=== PATIENT | female | born 1995 | race Caucasian/White ===

== ENCOUNTER 2017-11-03 11:23 | Day surgery (SDC) | payer OTHER ==
[~2017-11-03 11:23] MED LIST: METOCLOPRAMIDE 10 MG INJ
[2017-11-03] MEDS ORDERED: FENTAnyl 50 MCG/ML VIAL (13:22)
[2017-11-03] MEDS ORDERED: MIDAZOLAM 1 MG/ML 2 ML INJ (13:22)
[2017-11-03] MEDS ORDERED: PROPOFOL 20 ML (13:23)
[2017-11-03] MEDS ORDERED: DEXAMETHASONE 4 MG/ML 1 ML INJ (13:23)
[2017-11-03] MEDS ORDERED: LIDOCAINE 2% (SDV) 5 ML INJ (13:23)
[2017-11-03] MEDS ORDERED: NACL 0.9% 3 ML SYG IV (13:30)
[2017-11-03] MEDS ORDERED: OXYCODONE/ACETAMINOPHEN (5/325) TAB PO ×2 (13:30)
[2017-11-03] MEDS ORDERED: ONDANSETRON 4 MG INJ IV (13:30)
[2017-11-03] MEDS ORDERED: KETOROLAC 30 MG INJ IV (13:30)
[2017-11-03] MEDS ORDERED: HYDROmorphONE 0.5 MG/0.5 ML SYG IV (13:30)
[2017-11-03] MEDS ORDERED: ROPIVACAINE 0.5 % 30 ML VIAL (13:40)
[2017-11-03] MEDS: BUPIVACAINE 0.5% (SDV) 30 ML INJ (14:30)
[2017-11-03] MEDS: VANCOMYCIN 1 GM INJ (14:45)
[2017-11-03] MEDS ORDERED: ACETAMINOPHEN 1000MG/100ML IV 100 ML (15:58)
[2017-11-03] MEDS ORDERED: CLINDAMYCIN 900 MG/D5W (PMX) 50 ML IVPB (15:58)
[2017-11-03] MEDS ORDERED: ONDANSETRON 4 MG INJ (16:03)
[2017-11-03] MEDS ORDERED: HYDROmorphONE 2 MG/ML SYG (16:04)
[2017-11-03] MEDS ORDERED: FENTAnyl 50 MCG/ML VIAL IV ×2 (16:30)
[2017-11-03] MEDS ORDERED: HYDROmorphONE 1 MG/5 ML IV SYRINGE IV ×2 (16:30)
[2017-11-03] MEDS: DIPHENHYDRAMINE 50 MG INJ IV (17:27)
== END 2017-11-03 18:12 | disposition home or self-care (01) ==
LOC: SDS 11:23
DX: S83.511A Sprain of anterior cruciate ligament of right knee, initial encounter (principal); X58.XXXA Exposure to other specified factors, initial encounter; Y93.66 Activity, soccer; Y92.89 Other specified places as the place of occurrence of the external cause; Y99.8 Other external cause status
CPT/HCPCS: 29888; 84703

== ENCOUNTER 2018-02-23 11:55 | Inpatient (IN) | payer OTHER ==
[~2018-02-23 11:55] MED LIST changes: -METOCLOPRAMIDE 10 MG INJ; +VANCOMYCIN 1 GM in 250 ML IVPB
[2018-02-23 13:09] LABS: ADD MAN DIFF? NO
[2018-02-23 13:12] LABS: BASOPHIL # 0.1 10^3/ul (0.0-0.1); BASOPHILS % 0.8 % (0.0-2.0); EOSINOPHILS # 0.1 10^3/ul (0.0-0.5); EOSINOPHILS % 1.4 % (0.0-7.0); HEMATOCRIT 45.6 % (37.0-47.0); HEMOGLOBIN 15.2 g/dl (12.0-16.0); LYMPHOCYTES # 2.1 10^3/ul (0.8-2.9); LYMPHOCYTES % 33.3 % (18.0-55.0); MEAN CORPUSCULAR HEMOGLOBIN 28.8 pg (29.0-33.0); MEAN CORPUSCULAR HGB CONC 33.3 g/dl (32.0-37.0); MEAN CORPUSCULAR VOLUME 86.5 fl (72.0-104.0); MEAN PLATELET VOLUME 9.8 fl (7.4-10.4); MONOCYTE # 0.4 10^3/ul (0.3-0.9); MONOCYTES % 5.4 % (0.0-13.0); NEUTROPHIL # 3.8 10^3/ul (1.6-7.5); NEUTROPHILS % 58.9 % (30.0-74.0); PLATELET COUNT 325 10^3/UL (140-415); RED BLOOD COUNT 5.27 10^6/ul (4.20-5.40); RED CELL DISTRIBUTION WIDTH 11.5 % (11.5-14.5)
[2018-02-23 13:12] LABS: WHITE BLOOD COUNT 6.4 10^3/ul (4.8-10.8)
[2018-02-23 13:31] LABS: ANION GAP 11 (5-13); BLOOD UREA NITROGEN 13 mg/dl (7-20); CALCIUM 9.7 mg/dl (8.4-10.2); CARBON DIOXIDE 26 mmol/L (21-31); CHLORIDE 102 mmol/L (97-110); CREATININE 0.61 mg/dl (0.44-1.00); Estimated GFR > 60 mL/min (>60); GLUCOSE 80 mg/dl (70-220); POTASSIUM 4.1 mmol/L (3.5-5.1); SODIUM 139 mmol/L (135-144)
[2018-02-23 13:47] LABS: C-REACTIVE PROTEIN < 0.5 mg/dl (0.0-0.9)
[2018-02-23] MEDS: D5W-0.45 NACL + KCL 20 MEQ 1,000 ML IV ×2 (13:52→22:59)
[2018-02-23] MEDS ORDERED: SOD CHLORIDE 0.9% 1,000 ML IV (14:37)
[2018-02-23] MEDS ORDERED: NACL 0.9% 3 ML SYG IV (15:00)
[2018-02-23] MEDS ORDERED: MAGNESIUM HYDROXIDE 30ML CUP PO (15:00)
[2018-02-23] MEDS ORDERED: LORAZEPAM 2 MG INJ IV (15:00)
[2018-02-23] MEDS ORDERED: NITROGLYCERIN (SL) 0.4 MG TAB SL (15:00)
[2018-02-23] MEDS ORDERED: DOCUSATE SODIUM 100 MG CAP PO (15:00)
[2018-02-23] MEDS ORDERED: ACETAMINOPHEN 325 MG TAB PO (15:00)
[2018-02-23] MEDS ORDERED: ALBUTEROL/IPRATROPIUM (NEB) 3 ML AMP HHN (15:00)
[2018-02-23] MEDS ORDERED: hydrALAzine 20 MG INJ IV (15:00)
[2018-02-23 15:04] LABS: INR 0.95; PARTIAL THROMBOPLASTIN TIME 30.1 Sec (23.0-35.0); PROTIME 12.8 Sec (11.9-14.9)
[2018-02-23 15:17] LABS: ADD UMIC NO; UR ASCORBIC ACID NEGATIVE (NEGATIVE); UR BACTERIA FEW /HPF (NONE SEEN); UR BILIRUBIN (Dip) NEGATIVE (NEGATIVE); UR BLOOD (Dip) NEGATIVE (NEGATIVE); UR CLARITY SLIGHTLY CLOUDY (CLEAR); UR COLOR YELLOW (YELLOW); UR GLUCOSE (Dip) NEGATIVE (NEGATIVE); UR KETONES (Dip) NEGATIVE (NEGATIVE); UR LEUKOCYTE ESTERASE (Dip) NEGATIVE Leu/ul (NEGATIVE); UR NITRITE (Dip) NEGATIVE (NEGATIVE); UR RBC 2 /HPF (0-5); UR SQUAMOUS EPITHELIAL CELL MODERATE /HPF (FEW); UR TOTAL PROTEIN (Dip) NEGATIVE (NEGATIVE); UR UROBILINOGEN (Dip) NEGATIVE (NEGATIVE); UR WBC 2 /HPF (0-5)
[2018-02-23 15:41] LABS: FREE T4 (FREE THYROXINE) 1.02 ng/dl (0.79-2.35)
[2018-02-23] MEDS: AZTREONAM 2 GM in SOD CHLORIDE 0.9% 100 ML IVPB (15:47)
[2018-02-23] MEDS ORDERED: VANCOMYCIN IV PER PHARMACY XX (16:00)
[2018-02-23] MEDS ORDERED: morphine LIQ (10 MG/5 ML) CUP PO (16:30)
[2018-02-23] MEDS: VANCOMYCIN 1.25 GM in SOD CHLORIDE 0.9% 250 ML IVPB (21:44)
[2018-02-24] MEDS: DIPHENHYDRAMINE 50 MG INJ IV (01:07)
[2018-02-24] MEDS: AZTREONAM 2 GM in SOD CHLORIDE 0.9% 100 ML IVPB ×3 (02:01→23:10)
[2018-02-24] MEDS ORDERED: VANCOMYCIN 1 GM in 250 ML IVPB (03:00)
[2018-02-24 05:05] LABS: ADD MAN DIFF? NO
[2018-02-24 05:12] LABS: BASOPHIL # 0.1 10^3/ul (0.0-0.1); BASOPHILS % 0.6 % (0.0-2.0); EOSINOPHILS # 0.2 10^3/ul (0.0-0.5); EOSINOPHILS % 2.2 % (0.0-7.0); HEMATOCRIT 39.5 % (37.0-47.0); HEMOGLOBIN 13.2 g/dl (12.0-16.0); LYMPHOCYTES # 3.3 10^3/ul (0.8-2.9); LYMPHOCYTES % 40.2 % (18.0-55.0); MEAN CORPUSCULAR HEMOGLOBIN 29.1 pg (29.0-33.0); MEAN CORPUSCULAR HGB CONC 33.4 g/dl (32.0-37.0); MEAN PLATELET VOLUME 10.5 fl (7.4-10.4); MONOCYTE # 0.7 10^3/ul (0.3-0.9); NEUTROPHIL # 3.9 10^3/ul (1.6-7.5); NEUTROPHILS % 48.6 % (30.0-74.0); PLATELET COUNT 299 10^3/UL (140-415); RED BLOOD COUNT 4.54 10^6/ul (4.20-5.40); RED CELL DISTRIBUTION WIDTH 11.7 % (11.5-14.5)
[2018-02-24 05:12] LABS: WHITE BLOOD COUNT 8.1 10^3/ul (4.8-10.8)
[2018-02-24 05:27] LABS: HEMOGLOBIN A1C 4.9 % (0-5.9)
[2018-02-24 05:44] LABS: CHOL/HDL RATIO 2.7 RATIO; HDL CHOLESTEROL 52 mg/dl (33-83); LDL CHOLESTEROL,CALCULATED 66 mg/dl; TRIGLYCERIDES 123 mg/dl (0-149)
[2018-02-24 05:44] LABS: CHOLESTEROL 143 mg/dl (100-200)
[2018-02-24 05:45] LABS: ANION GAP 9 (5-13); BLOOD UREA NITROGEN 12 mg/dl (7-20); CALCIUM 8.8 mg/dl (8.4-10.2); CARBON DIOXIDE 27 mmol/L (21-31); CHLORIDE 105 mmol/L (97-110); CREATININE 0.68 mg/dl (0.44-1.00); Estimated GFR > 60 mL/min (>60); GLUCOSE 101 mg/dl (70-220); MAGNESIUM 2.1 mg/dl (1.7-2.5); PHOSPHORUS 5.1 mg/dl (2.5-4.9); POTASSIUM 4.3 mmol/L (3.5-5.1); SODIUM 141 mmol/L (135-144)
[2018-02-24] MEDS: D5W-0.45 NACL + KCL 20 MEQ 1,000 ML IV ×2 (08:33→19:28)
[2018-02-24] MEDS: VANCOMYCIN 1 GM in 250 ML IVPB ×2 (08:34→19:26)
[2018-02-24] MEDS ORDERED: ROPIVACAINE 0.5 % 30 ML VIAL (15:06)
[2018-02-24] MEDS: MEPERIDINE 25 MG INJ IV (17:54)
[2018-02-24] MEDS: ONDANSETRON 4 MG INJ IV ×2 (17:54→23:04)
[2018-02-24] MEDS: HYDROmorphONE 1 MG/5 ML IV SYRINGE IV ×3 (17:59→18:12)
[2018-02-24] MEDS ORDERED: METOCLOPRAMIDE 10 MG INJ IV (18:00)
[2018-02-24] MEDS ORDERED: DIPHENHYDRAMINE 50 MG INJ IV (18:00)
[2018-02-24] MEDS ORDERED: ALBUTEROL 0.083% (NEB) 2.5 MG/3 ML AMP HHN (18:00)
[2018-02-24] MEDS ORDERED: FENTAnyl 50 MCG/ML VIAL IV ×2 (18:00)
[2018-02-24 19:50] LABS: SYN FLD MN % 32.8 &; SYN FLD PMN % 67.2 % (0.0-25.0)
[2018-02-24 20:09] LABS: SYN FLD WBC 12117 /cmm (0-150)
[2018-02-24 20:10] LABS: SYN FLD SOURCE RIGHT KNEE
[2018-02-24 20:10] LABS: SYN FLD CLARITY BLOODY; SYN FLD COLOR RED; SYN FLD CRYSTALS NO CRYSTALS SEEN (None seen)
[2018-02-25] MEDS: VANCOMYCIN 1 GM in 250 ML IVPB ×2 (01:04→09:39)
[2018-02-25] MEDS: HYDROCODONE/APAP (5/325) TAB PO ×2 (01:05→08:13)
[2018-02-25 06:45] LABS: ADD MAN DIFF? NO
[2018-02-25 07:01] LABS: BASOPHILS % 0.4 % (0.0-2.0); EOSINOPHILS % 0.1 % (0.0-7.0); HEMATOCRIT 38.6 % (37.0-47.0); LYMPHOCYTES # 1.4 10^3/ul (0.8-2.9); LYMPHOCYTES % 15.6 % (18.0-55.0); MEAN CORPUSCULAR HEMOGLOBIN 29.2 pg (29.0-33.0); MEAN CORPUSCULAR HGB CONC 33.7 g/dl (32.0-37.0); MEAN CORPUSCULAR VOLUME 86.7 fl (72.0-104.0); MEAN PLATELET VOLUME 10.2 fl (7.4-10.4); MONOCYTE # 0.5 10^3/ul (0.3-0.9); MONOCYTES % 5.6 % (0.0-13.0); PLATELET COUNT 279 10^3/UL (140-415); RED BLOOD COUNT 4.45 10^6/ul (4.20-5.40); RED CELL DISTRIBUTION WIDTH 11.6 % (11.5-14.5)
[2018-02-25 07:29] LABS: ANION GAP 6 (5-13); BLOOD UREA NITROGEN 8 mg/dl (7-20); CALCIUM 8.9 mg/dl (8.4-10.2); CARBON DIOXIDE 29 mmol/L (21-31); CHLORIDE 105 mmol/L (97-110); CREATININE 0.61 mg/dl (0.44-1.00); Estimated GFR > 60 mL/min (>60); GLUCOSE 94 mg/dl (70-220); POTASSIUM 4.4 mmol/L (3.5-5.1); SODIUM 140 mmol/L (135-144)
[2018-02-25] MEDS: CEFTRIAXONE 250 MG INJ ZFS (08:13)
[2018-02-25 09:25] LABS: VANCOMYCIN,TROUGH 14.8 ug/ml (10.0-20.0)
[2018-02-25] MEDS: CEFTRIAXONE 2 GM/50 ML (PMX) 50 ML IVPB ×2 (09:30→14:11)
[2018-02-25] MEDS: ONDANSETRON 4 MG INJ IV (09:39)
[2018-02-25] MEDS: D5W-0.45 NACL + KCL 20 MEQ 1,000 ML IV ×3 (11:17→22:07)
[2018-02-25] MEDS ORDERED: DIPHENHYDRAMINE 50 MG INJ IV (12:30)
[2018-02-25] MEDS: VANCOMYCIN 750 MG in SOD CHLORIDE 0.9% 150 ML IVPB (18:37)
[2018-02-26] MEDS: D5W-0.45 NACL + KCL 20 MEQ 1,000 ML IV ×2 (00:10→11:09)
[2018-02-26] MEDS: VANCOMYCIN 750 MG in SOD CHLORIDE 0.9% 150 ML IVPB (02:16)
[2018-02-26 07:20] LABS: ADD MAN DIFF? NO
[2018-02-26 07:35] LABS: WHITE BLOOD COUNT 5.9 10^3/ul (4.8-10.8)
[2018-02-26 07:35] LABS: BASOPHILS % 0.5 % (0.0-2.0); EOSINOPHILS # 0.2 10^3/ul (0.0-0.5); EOSINOPHILS % 2.7 % (0.0-7.0); HEMATOCRIT 39.1 % (37.0-47.0); HEMOGLOBIN 12.9 g/dl (12.0-16.0); LYMPHOCYTES # 1.3 10^3/ul (0.8-2.9); MEAN CORPUSCULAR HEMOGLOBIN 29.1 pg (29.0-33.0); MEAN CORPUSCULAR VOLUME 88.1 fl (72.0-104.0); MEAN PLATELET VOLUME 9.9 fl (7.4-10.4); MONOCYTE # 0.6 10^3/ul (0.3-0.9); MONOCYTES % 10.7 % (0.0-13.0); NEUTROPHIL # 3.8 10^3/ul (1.6-7.5); NEUTROPHILS % 63.9 % (30.0-74.0); PLATELET COUNT 260 10^3/UL (140-415); RED BLOOD COUNT 4.44 10^6/ul (4.20-5.40); RED CELL DISTRIBUTION WIDTH 11.5 % (11.5-14.5)
[2018-02-26 07:55] LABS: ANION GAP 10 (5-13); BLOOD UREA NITROGEN 7 mg/dl (7-20); CALCIUM 9.1 mg/dl (8.4-10.2); CARBON DIOXIDE 31 mmol/L (21-31); CHLORIDE 101 mmol/L (97-110); CREATININE 0.66 mg/dl (0.44-1.00); Estimated GFR > 60 mL/min (>60); GLUCOSE 98 mg/dl (70-220); POTASSIUM 4.1 mmol/L (3.5-5.1); SODIUM 142 mmol/L (135-144)
[2018-02-26] MEDS: LEVOFLOXACIN 750 MG TABLET PO (11:09)
[2018-02-26] MEDS ORDERED: LORAZEPAM 4 MG/ML VIAL IV (13:30)
[2018-02-27] MEDS ORDERED: LEVOFLOXACIN 750 MG TABLET PO (06:00)
[2018-02-28 14:41] LABS: PROCALCITONIN <0.10 ng/mL (<0.10)
== END 2018-02-26 15:50 | disposition home or self-care (01) | DRG 857 ==
LOC: E/R 11:55 → 2NE 13:13
PROC: 0JBN0ZZ Excision of Right Lower Leg Subcutaneous Tissue and Fascia, Open Approach (ICD-10-PCS; principal; 2018-02-24 15:30)
PROC: 3E1U38X Irrigation of Joints using Irrigating Substance, Percutaneous Approach, Diagnostic (ICD-10-PCS; 2018-02-24 15:30)
DX: T81.41XA Infection following a procedure, superficial incisional surgical site, initial encounter (principal); M00.061 Staphylococcal arthritis, right knee; T85.79XA Infection and inflammatory reaction due to other internal prosthetic devices, implants and grafts, initial encounter; B95.2 Enterococcus as the cause of diseases classified elsewhere; B95.4 Other streptococcus as the cause of diseases classified elsewhere; B96.5 Pseudomonas (aeruginosa) (mallei) (pseudomallei) as the cause of diseases classified elsewhere; B95.7 Other staphylococcus as the cause of diseases classified elsewhere
CPT/HCPCS: 73562; 80048; 80061; 80202; 81001; 81003; 81025; 83036; 83735; 84100; 84145; 84439; 84443; 85025; 85610; 85651; 85730; 86140; 87040; 87070; 87075; 87086; 87102; 87116; 89060; 97161; 97164; 97165; 99285-25